=== PATIENT | male | born 1960 | race Caucasian/White ===

== ENCOUNTER 2025-10-06 07:29 | Day surgery (SDC) | payer MEDICARE, SELFPAY ==
--- OUTSIDE RECORDS SUMMARY | 2011-08-07 04:30 | XMS_ITS | Continuity of Care Document ---
Author Organization [facility] Address Corporate Office [address] [place] [address] Phone Care Team Providers Care Driller And Reamer Name Role Phone Kasi Tong M.D. Unavailable Unavailable Medications Medication Instructions Dosage Effective Dates (start - stop) Status Comments terbutaline 5 mg Tab take 1 tablet (5MG) by oral route 3 times every day 5 MG - Active aspirin 81 mg Tab take 1 tablet (81MG) by oral route every day - Active Motrin 100 mg Tab take 2 tablet (200MG ) by oral route 4 - 6 hours as needed with food - Active Procedures Procedure Date Cosmetic Post Op Blepharoplasty All 4 Lids No Charge Visit No Charge Visit [facility] frames purchases Spherocylindr 4.00d/12-2.00d Tax Advance Directives Directive Yes / No Effective Date File Name Resuscitation Not Answered N/A N/A Life Support Not Answered N/A N/A Intubation Not Answered N/A N/A Antibiotics Not Answered N/A N/A IV Fluid Support Not Answered N/A N/A Tube Feed Not Answered N/A N/A Other Directive N/A N/A WARNING:The information contained in this section is historical and is provided for information only and does not constitute a legal document or any assurance that the information is still accurate. Please verify the information with the kelly of the legal document before using it for clinical purposes. Encounters Encounter Description Practice Location Reason(s) For Visit Diagnoses Date Provider Providers Copied on Encounter [facility], Corporate [id number] [place] [address], [id number], tel:[phone] [facility] Post-op (chief complaint) No Information 1 Alycia Villaseñor. [address] [place] [address], [id number] . tel:[phone] [facility], Corporate [id number] [place] [address], [id number], tel:[phone] [facility] No Information 1 Alycia Villaseñor. [address] [place] [address], [id number] . tel:[phone] [facility] [id number] [place] [address], [id number], tel:[phone] [facility] Upper and lower lids extra skin, puffiness (chief complaint) [facility] 1 Alycia Villaseñor. [address] [place] [address], [id number] . tel:[phone] [facility] [id number] [place] [address], [id number], tel:[phone] [facility] No Information 9 Richy Rhodes. [address] [place] [address], [id number] , . tel:[phone] Family History Family Member Type Diagnosis Age At Onset No Information Payers Payer name Insurance type Covered alliance party ID Authoriza tion(s) No Information Social History Type Description Quantity Date Captured Comments Alcohol Use Details No Caffeine Use Details Unknown Tobacco Use Status No Information Smoking Status No Information Sex Male Chief Complaint And Reason For Visit From encounter dated '08/07/2011 08:30'. Post-op (chief complaint) Reason For Referral Reason For Referral No Information History Of Present Illness Encounter Date Complaint History Of Prese nt Illness No Information Functional Status Date Functional Assessmen t No Information Instructions Date Instruction Additional Infor mation No Information Assessments Type Assessment Date No Information Patient Care Teams Name Effective Dates (start - stop) Status Members No Information
--- OUTSIDE RECORDS SUMMARY | 2025-09-06 14:21 | XMS_ITS | Patient Health Record ---
Author Organization [facility] Address [address] [place] [address] Care Team Providers Care Machinist Apprentice Name Role Phone EDMAR FERNANDES Primary Care Provider Artie Tello Unavailable [phone] Allergies No Known Allergies Reason For Referral Reason please refer to [facility] for routine colonoscopy Diagnosis 1 Encounter for screen ing for malignant neoplasm of colon (Z12.11) Referral Organization [facility] Referring Provider First Name Artie Referring Provider Last Name Elisha Referring Provider Speciality Internal M edicine Referred Provider Specialty Gastroentero logy General Notes Referral faxed to [facility]. Please call patient to cindy.Andrew Christy 12/30/2024 11:33:36 AM > Referral Priority Routine Medications Medication SIG (Take, Route, Frequency, Duration) Notes Start Date End Date Status Rosuvastatin Calcium 10 MG 1 tablet Oral ly twice daily Active CoQ10 100 MG as directed Orally Active Immunizations Vaccine Route Administration Date Status Comme nts COVID Moderna Unknown 01/26/2021 Administered COVID Moderna Unknown 02/23/2021 Administered COVID Moderna Unknown 09/18/2021 Administered COVID Moderna Unknown 05/28/2022 Administered Fluzone High Dose [id number] Unknown 08/10/2024 Administered Shingrix Unknown 04/23/2022 Administered Shingrix Unknown 06/18/2022 Administered TDAP Unknown 07/30/2018 Administered Social History Tobacco Use: Social History Observation Description Date Details (start date - stop date) Never Smoker NA - NA Tobacco Use/Smoking Question Answer Notes Are you a nonsmoker Problems Problem Type SNOMED Code ICD Code Onset Dates Problem Status W/U Status Risk Notes Problem Basal cell carcinoma of truncal skin (319369115) Basal cell carcinoma of skin of other part of trunk (C44.519) Active confirmed Problem Squamous cell carcinoma of skin of trunk (933677863) Squamous cell carcinoma of skin of other part of trunk (C44.529) Active confirmed Problem Mixed hyperlipidemia (547254255) Mixed hyperlipidemia (E78.2) Active confirmed Problem Hyperlipidemia (37745656) Hyperlipidemia, unspecified (E78.5) Active confirmed Problem Psoriasis (7174567) Psoriasis, unspecified (L40.9) Active confirmed Problem History of malignant neoplasm of prostate (636589853) Personal history of malignant neoplasm of prostate (Z85.46) Active confirmed Vital Signs Heart Rate 78 /min 12/21/2024 Temperature 97.4 degrees Fahrenheit 12/21/2024 Oximetry 96 % 12/21/2024 Blood pressure diastolic 86 mm Hg 12/21/2024 Height 5'7'' in 12/21/2024 Blood pressure systolic 110 mm Hg 12/21/2024 Weight 184.6 lbs 12/21/2024 BMI 28.91 kg/m2 12/21/2024 Encounters Encounter Location Date Provider Diagnosis [address] [place] [address] 11/30/2024 EDMAR FERNANDES [address] [place] [address] 12/21/2024 [facility] Mixed hyperlipidemia E78.2 ; Personal history of malignant neoplasm of prostate Z85.46 ; Basal cell carcinoma of skin of other part of trunk C44.519 and Squamous cell carcinoma of skin of other part of trunk C44.[address] [place] [address] 12/30/2024 EDMAR FERNANDES Assessments Encounter Date Diagnosis (ICD Code) Assessment Notes Treatment Notes Treatment Clinical Notes Section Notes 12/21/2024 Mixed hyperlipidemia (ICD-10 - E78.2) Mr Canchola is a 64 -year-old gentleman with hyperlipidemia here For his first Medicare wellness visit. Hyperlipidemia. Continue Rosuvastatin 10 MG daily bid lipid profile checked in October 2024 showed elevated cholesterol level and LDL and therefore pravastatin was resumed patient reported he stopped for a short time was the lab work showed elevated levels it was resumed Squamous/basal cell carcinoma of the trunk. He goes to [facility] for yearly skin cancer screening and he is stable Personal history of prostate cancer. History of prostatectomy at [facility] PSA was less than 0.3 Psoriasis. Stable and he uses clobetasol cream when necessary Colon cancer screening. He had his colonoscopy done 4 years ago and is on 0-imfk-[id number].we will give a referral to GI as previous colonoscopy showed sessile/2 polyps Immunizations. He is up-to-date on his COVID, influenza, shingles and pneumonia vaccinations. EKG patient declined today he has no risk factors. patient is very independent with his ADLs. Advanced health planning his Cassi is the healthcare proxy. Anxiety and depression none his PHQ 9 score is 0 12/21/2024 Personal history of malignant neoplasm of prostate (ICD-10 - Z85.46) Mr Canchola is a 64 -year-old gentleman with hyperlipidemia here For his first Medicare wellness visit. Hyperlipidemia. Continue Rosuvastatin 10 MG daily bid lipid profile checked in October 2024 showed elevated cholesterol level and LDL and therefore pravastatin was resumed patient reported he stopped for a short time was the lab work showed elevated levels it was resumed Squamous/basal cell carcinoma of the trunk. He goes to [facility] for yearly skin cancer screening and he is stable Personal history of prostate cancer. History of prostatectomy at [facility] PSA was less than 0.3 Psoriasis. Stable and he uses clobetasol cream when necessary Colon cancer screening. He had his colonoscopy done 4 years ago and is on 1-[id number]-neqne.we will give a referral to GI as previous colonoscopy showed sessile/2 polyps Immunizations. He is up-to-date on his COVID, influenza, shingles and pneumonia vaccinations. EKG patient declined today he has no risk factors. patient is very independent with his ADLs. Advanced health planning his Cassi is the healthcare proxy. Anxiety and depression none his PHQ 9 score is 0 12/21/2024 Basal cell carcinoma of skin of other part of trunk (ICD-10 - C44.519) Mr Canchola is a 64 -year-old gentleman with hyperlipidemia here For his first Medicare wellness visit. Hyperlipidemia. Continue Rosuvastatin 10 MG daily bid lipid profile checked in October 2024 showed elevated cholesterol level and LDL and therefore pravastatin was resumed patient reported he stopped for a short time was the lab work showed elevated levels it was resumed Squamous/basal cell carcinoma of the trunk. He goes to [facility] for yearly skin cancer screening and he is stable Personal history of prostate cancer. History of prostatectomy at [facility] PSA was less than 0.3 Psoriasis. Stable and he uses clobetasol cream when necessary Colon cancer screening. He had his colonoscopy done 4 years ago and is on [id number]-[id number].we will give a referral to GI as previous colonoscopy showed sessile/2 polyps Immunizations. He is up-to-date on his COVID, influenza, shingles and pneumonia vaccinations. EKG patient declined today he has no risk factors. patient is very independent with his ADLs. Advanced health planning his Cassi is the healthcare proxy. Anxiety and depression none his PHQ 9 score is 0 12/21/2024 Squamous cell carcinoma of skin of other part of trunk (ICD-10 - C44.529) Mr Canchola is a 64 -year-old gentleman with hyperlipidemia here For his first Medicare wellness visit. Hyperlipidemia. Continue Rosuvastatin 10 MG daily bid lipid profile checked in October 2024 showed elevated cholesterol level and LDL and therefore pravastatin was resumed patient reported he stopped for a short time was the lab work showed elevated levels it was resumed Squamous/basal cell carcinoma of the trunk. He goes to [facility] for yearly skin cancer screening and he is stable Personal history of prostate cancer. History of prostatectomy at [facility] PSA was less than 0.3 Psoriasis. Stable and he uses clobetasol cream when necessary Colon cancer screening. He had his colonoscopy done 4 years ago and is on 5-[id number]-[id number].we will give a referral to GI as previous colonoscopy showed sessile/2 polyps Immunizations. He is up-to-date on his COVID, influenza, shingles and pneumonia vaccinations. EKG patient declined today he has no risk factors. patient is very independent with his ADLs. Advanced health planning his Cassi is the healthcare proxy. Anxiety and depression none his PHQ 9 score is 0 Plan Of Treatment Pending Test Test Name Order Date Lipid Panel With LDL/HDL Ratio-[id number] Future Test Test Name Order Date Lipid Panel-[id number] 01/27/2024 Comp. Metabolic Panel ([id number] 2023 Next Appt Details Provider Name:Fatuma Cali 01/03/2026 10:30:00 AM, [address] [place] [address], [place], [address], Insurance Providers Payer Name Payer Address Payer Phone Subscriber Number Group Number Insured Name Patient Relationship to Insured Coverage Start Date Coverage End Date Medicare [address] [place] [phone] [phone] [id number] CancholaOsvaldo gary Self - patient is the insured [facility] [address] [place] [address] [id number] Osvaldo Canchola Self - patient is the insured Medical (General) History Medical History History ICD Code hyperlipidemia basal and squamous cell carcinoma and he goes to [facility] Surgical History Surgery Date(Month/Year) prostatectomy secondary to prostate canc er at [facility] bilateral ACL repair left clavicale repair Microdiscectomy lower back
--- OUTSIDE RECORDS SUMMARY | 2025-09-06 14:22 | XMS_ITS | Clinical Summary ---
Author Organization [facility] Address [address] [place], [place] [id number] Phone Care Team Providers Care Production Support Consultant Name Role Phone Justin Conrad MD Primary Care Provider [phone] Allergies No known active allergies Medications rosuvastatin (CRESTOR) 10 MG tablet Take 10 mg by mouth daily. Active coenzyme Q10 100 mg capsule Take 100 mg by mouth daily. Active aspirin 81 MG EC tablet Take 81 mg by mouth daily. Active Active Problems Problem Noted Date Diagnosed Date Basal cell carcinoma of chest 02/27/2017 Social History Tobacco Use Types Packs/Day Years Used Date Smoking Tobacco: Never Education Answer Date Recorded Are you interested in more education? Not on bernard e 03/08/2023 Are you concerned about learning? Not on file 03/08/2023 No 03/08/2023 No 03/08/2023 Digital Access Answer Date Recorded No 04/08/2023 No 04/08/2023 No 04/08/2023 Reliable internet access at home? Not on file 04/08/2023 Device with a working camera? Not on file Sex and Gender Information Value Date Recorded Sex Assigned at Not on file Legal Sex Male 9:48 AM EST Gender Identity Not on file Sexual Orientation Not on file Plan of Treatment Health Maintenance Due Date Last Done Comments LIPID PANEL 1959 DEPRESSION SCREENING 1971 HEPATITIS C SCREENING 1977 HIV ONE-TIME SCREENING (18-6 5 YEARS) 1977 COLOGUARD 2004 COLONOSCOPY 2004 COLORECTAL CANCER SCREENING 2004 FIT TEST 2004 FOBT 2004 SIGMOIDOSCOPY 2004 VIRTUAL COLONOSCOPY 2004 PNEUMOCOCCAL VACCINES (50+ y ears) (1 of 1 - PCV) 2009 ZOSTER VACCINES (1 of 2) 2009 INFLUENZA VACCINE (#1) 2025 07/30/2018 COVID-19 VACCINE (1 - 2024-2 6 season) 2025 Adult Td,Tdap Booster 07/30/2028 07/30/2018 RSV VACCINE (1 - 1-dose 75+ series) 2034 SMOKING STATUS SCREENING (On ce After 26 Yrs) Completed 01/29/2017 HEPATITIS A VACCINES Aged Out No long er eligible based on patient's age to complete this topic HIB VACCINES Aged Out No longer eligi ble based on patient's age to complete this topic MENINGOCOCCAL VACCINES (ACWY) Aged Out No longer eligible based on patient's age to complete this topic MENINGOCOCCAL VACCINES (B) Aged Out N o longer eligible based on patient's age to complete this topic Medical Devices Not on file Insurance [facility] OUT OF STATE PPO Care Teams Production Support Consultant Relationship Specialty Start Date End Date Justin Conrad MD [address] [place] [address] [email or web address] PCP - General 01/09/17 Additional Source Comments The information contained in this document represents components of the legal health record. It is not the complete legal health record.[facility]
[2025-10-04 16:17] VITALS: BMI 27.4
--- NOTE | 2025-10-05 09:10 | HO.ANESPROP2 ---
Documented by User: Kimberly Wang NP 10/05/25 09:11 HPI - Anesthesia Eval Consult details Narrative: 64 yr old male for colonoscopy [facility] Active Problems Active Problems: All Active Problems Colon cancer screening (Acute) Past Medical History Medical History History of prostate cancer History of skin cancer HLD (hyperlipidemia) Surgical History Surgical History Hx of prostatectomy Hx of basal cell carcinoma excision History of squamous cell carcinoma excision Hx of spinal surgery History of repair of ACL Hx of colonoscopy Social History Social History Household Members: Spouse Housing: House Are you a primary aged or disabled carer to a significant other at home: No Do you presently have visiting nurse or other home services: No Patient Tobacco Use Status: Never used Tobacco e-Cigarette/Vaping Use: Never Used Use of substances other than those prescribed or required for medical reasons: No Have you been hit, kicked, punched, or otherwise hurt by someone within the past year? If so, by whom?: No Are you DNR?: No Advance Directives: No Advance Directives Information Provided: Yes Advance Directives on File: No Meds Allergies Allergy/AdvReac Type Severity Reaction Status Date / Time No Known Allergies Allergy Verified 10/06/25 08:01 Home Medications ?Medication ?Instructions ?Recorded ?Confirmed ?Last Taken ?Type lorazepam 1 mg tablet 1 mg PO DAILY PRN Anxiety 08/04/25 Unknown History coQ10 (ubiquinol) 100 mg capsule 100 mg PO BID 10/04/25 10/06/25 Unknown History rosuvastatin 10 mg tablet 10 mg PO BID 10/04/25 10/06/25 Unknown History Exam Height,Weight and Vital Signs: Height 5 ft 7 in Weight 79.379 kg Documented by User: Whit Tang MD 10/06/25 08:25 [facility] Past Medical History Medical History History of prostate cancer History of skin cancer HLD (hyperlipidemia) Surgical History Surgical History Hx of prostatectomy Hx of basal cell carcinoma excision History of squamous cell carcinoma excision Hx of spinal surgery History of repair of ACL Hx of colonoscopy History of Problems with Anesthesia: No Social History Social History Household Members: Spouse Housing: House Are you a primary aged or disabled carer to a significant other at home: No Do you presently have visiting nurse or other home services: No Patient Tobacco Use Status: Never used Tobacco e-Cigarette/Vaping Use: Never Used Use of substances other than those prescribed or required for medical reasons: No Have you been hit, kicked, punched, or otherwise hurt by someone within the past year? If so, by whom?: No Are you DNR?: No Advance Directives: No Advance Directives Information Provided: Yes Advance Directives on File: No Meds Allergies Allergy/AdvReac Type Severity Reaction Status Date / Time No Known Allergies Allergy Verified 10/06/25 08:01 Home Medications ?Medication ?Instructions ?Recorded ?Confirmed ?Last Taken ?Type lorazepam 1 mg tablet 1 mg PO DAILY PRN Anxiety 08/04/25 Unknown History coQ10 (ubiquinol) 100 mg capsule 100 mg PO BID 10/04/25 10/06/25 Unknown History rosuvastatin 10 mg tablet 10 mg PO BID 10/04/25 10/06/25 Unknown History Exam Airway Mallampati Class: III TM Dist: >3cm Neck ROM: Full Loose/Missing/Broken Teeth: No Heart: RRR Lungs: CTA Assessment and Plan Assessment Anesthesia Assessment: Anesthesia Plan Discussed and Chart Reviewed Final Anesthetic Review History of Problems with Anesthesia: No NPO: Yes ASA Class: II Final Preanesthetic Review: Meds/Allgs Chart Reviewed, Consent Obtained/Reviewed and Anes Risks/Benef Reviewed Patient Risk: Low Procedure Risk: Low Anesthetic Plan Anesthetic Plan: MAC: Disposition: Standard PACU
--- NOTE | 2025-10-06 07:07 | MHC.SHP ---
Pre-Procedural Eval Section A - 24 Hr Update-Section A only Date of Service: 10/06/25 Section B - Complete if H&P > 30 days Chief Complaint: screening Relevant Family History (Specify if Yes): No Relevant Social History: None Present Medications: see Short Stay Collaborative assessment Medical History: Significant History (History of prostate cancer History of skin cancer HLD (hyperlipidemia)) History of Previous Operations: Relevant previous surgery/procedure and date(s) ( Hx of prostatectomy Hx of basal cell carcinoma excision History of squamous cell carcinoma excision Hx of spinal surgery History of repair of ACL Hx of colonoscopy) Allergies: Allergies Allergy/AdvReac Type Severity Reaction Status Date / Time No Known Allergies Allergy Verified 08/04/25 13:26 Review of Systems Sugical H&P ROS: Negative: Constitution, Cardiovascular, Respiratory, Neurological, Psychiatric, Hem-Onc, Allergic/Immunologic, Gastrointestinal, Genitourinary, Musculoskeletal, Integumentary, Endocrine and Eyes/Ears/Nose/Throat Exam Surgical H&P Exam: Normal: HEENT, Normal: Heart, Normal: Lungs, Normal: Extremities, Normal: Abdomen, Normal: Skin and Normal: Neurological Plan Diagnosis/Plan: Unchanged I have reviewed the history and physical and performed a pertinent physical examination on my patient. No changes have occurred unless specified. Time Spent With Patient Time: Total time managing care of this patient today ____ minutes.
[2025-10-06 07:38] VITALS: BMI 28.1
[2025-10-06 07:50] VITALS: BP 120/72; PULSE 80; RESP 80; TEMP 36.1; O2SAT 98
[2025-10-06] MEDS: Lactated Ringers 1,000 ML 100 ML IVCONT (08:03)
--- NOTE | 2025-10-06 09:02 | P.OPN-COLO_ITS ---
Colonoscopy Operative Note Operative Note Date of Service: 10/06/25 Narrative: Operative Information Procedure Description: Colonoscopy Indication: screening Anesthesia: MAC COLONOSCOPY Instrument: Olympus variable stiffness pediatric scope 190L Colonoscopy Monitoring: Vital signs and clinical assessment, continuous EKG monitoring, Pulse oximetry, Carbon Dioxide monitoring and blood pressure monitoring were done throughout the procedure. Colon withdrawal time was 16 minutes. Procedure: The patient was placed in the left lateral decubitis position and pre-procedure medications were administered. After a digital rectal examination of the ano-rectum, the video colonoscope was inserted into the rectum and advanced through the colon to the cecum/TI. The colonoscope was slowly withdrawn in a retrograde panoramic fashion and the colon mucosa was carefully examined including a retroflexed view of the rectum. Findings and interventions are described below. Procedure Difficulty: easy Findings: Terminal Ileum-normal Cecum:normal Right sided retroflexion- normal Ascending Colon: normal Transverse Colon -normal Descending Colon:normal Sigmoid Colon: mild diverticulosis Rectum: Retroflexion with small inflammed internal hemorrhoids seen, grade I, x 3 sessile polyps 3-5 mm removed with cold forceps Anorectum - normal Intervention: cold forceps Colon preparation: [place] Bowel Preparation Scale Right colon; 2 Transverse colon: 3 Left colon; 2 (0 = Unprepared colon segment with mucosa not seen due to solid stool that cannot be cleared. 1 = Portion of mucosa of the colon segment seen, but other areas of the colon segment not well seen due to staining, residual stool and/or opaque liquid. 2 = Minor amount of residual staining, small fragments of stool and/or opaque liquid, but mucosa of colon segment seen well. 3 = Entire mucosa of colon segment seen well with no residual staining, small fragments of stool or opaque liquid) Impression and Post Procedure Diagnosis: diverticulosis colon polyps x3 internal hemorrhoids Plan: High fiber diet leaflet Avoid straining at stool, epsom salts and sitz bath, anusol supps or cream Repeat Colonoscopy in 5-7 years if adenomatous polyps, 10 yrs if hyperplastic or earlier if clinically indicated Above findings were reviewed with the patient and relevant handouts were provided if indicated.
[2025-10-06 09:05] VITALS: BP 87/51; PULSE 58; RESP 18; TEMP 36.1; O2SAT 96
[2025-10-06 09:10] VITALS: BP 86/56; PULSE 56; RESP 16; O2SAT 96
[2025-10-06 09:20] VITALS: BP 107/57; PULSE 71; RESP 14; O2SAT 95
[2025-10-06 09:35] VITALS: BP 100/56; PULSE 62; RESP 14; TEMP 36.1; O2SAT 95
== END 2025-10-06 10:19 | disposition home or self-care (01) ==
PROVIDERS: PCP Hospitalist; Visit Provider Internal Medicine Gastroenterology
PROC: 0DJD8ZZ Inspection of Lower Intestinal Tract, Via Natural or Artificial Opening Endoscopic (ICD-10-PCS; CPT 45378; principal; 2025-10-06 08:30)
DX: Z12.11 Encounter for screening for malignant neoplasm of colon (principal); K57.30 Diverticulosis of large intestine without perforation or abscess without bleeding; K64.0 First degree hemorrhoids; K63.5 Polyp of colon
CPT/HCPCS: 45380; 88305; J2003; J2704

== ENCOUNTER → 2025-10-06 07:29 | Outpatient (BNV) | payer MEDICARE, SELFPAY | PROVIDERS: PCP Hospitalist; Visit Provider Internal Medicine Gastroenterology | DX: Z12.11 Encounter for screening for malignant neoplasm of colon (principal); K63.5 Polyp of colon; K57.30 Diverticulosis of large intestine without perforation or abscess without bleeding; K64.0 First degree hemorrhoids | CPT/HCPCS: 45380 ==